=== PATIENT | male | born 1980 | race American Indian/Alaskan Native ===

== ENCOUNTER 2019-04-02 10:07 | Day surgery (SDC) | payer BC ==
--- NOTE | 2019-04-02 10:49 | Anesthesia Day of Surgery ---
Anesthesia Day of Surgery - Day of Surgery Patient Examined: Yes Patient H&P Reviewed: Yes Patient is NPO: Yes
--- NOTE | 2019-04-02 10:56 | Anesthesia Consultation ---
Anesthesia Consult and Med Hx Date of service: 04/02/19 - Airway Anesthetic Teeth Evaluation: Good (BRACES) ROM Head & Neck: Adequate Mental/Hyoid Distance: Adequate Mallampati Class: Class I Intubation Access Assessment: Good - Pre-Operative Health Status ASA Pre-Surgery Classification: ASA1 Proposed Anesthetic Plan: General - Pulmonary Hx Smoking: No (MARIJUANA QUIT 3 YRS AGO) Hx Sleep Apnea: No (SONYA PRE SCREEN LOW RISK) - Cardiovascular System Hx Hypertension: No Hx Heart Attack/AMI: No - Central Nervous System Hx Psychiatric Problems: No - Hematic Hx Anemia: No Hx Sickle Cell Disease: No (TRAIT ONLY) - Other Systems Hx Alcohol Use: No Hx Substance Use: Yes (MARIJUANA QUIT 3 YRS AGO) Hx Cancer: No
[2019-04-02] MEDS ORDERED: ONDANSETRON 4 MG/2 ML INJ IV PRN (10:57)
[2019-04-02] MEDS ORDERED: fentaNYL 100 MCG/2 ML INJ IV PRN (10:57)
[2019-04-02] MEDS ORDERED: ACETAMINOPHEN 500 MG TAB PO NR (10:58)
[2019-04-02] MEDS ORDERED: MAGNESIUM OXIDE 400 MG TAB PO NR (10:58)
[2019-04-02] MEDS ORDERED: GABAPENTIN 300 MG CAP PO NR (11:00)
[2019-04-02] MEDS ORDERED: LACTATED RINGERS 1,000 ML IV SCH (11:00)
[2019-04-02] MEDS ORDERED: CELECOXIB 200 MG CAP PO NR (11:00)
[2019-04-02] MEDS ORDERED: MIDAZOLAM 2 MG/2 ML INJ IV NR (11:00)
[2019-04-02] MEDS ORDERED: ceFAZolin/STERILE WATER 2 GM/20 ML SYRINGE IV NR (12:00)
[2019-04-02] MEDS ORDERED: BUPIVACAINE/PF (0.25%) 2.5 MG/ML 30 ML VIAL INFILTRATI ONE (12:16)
[2019-04-02] MEDS ORDERED: NEOMY 40 MG/POLYMYXIN B 200,000 UNITS/ML (GU) AMPULE IR ONE ×2 (12:16→13:42)
[2019-04-02] MEDS ORDERED: PROPOFOL 200 MG/20 ML VIAL IV ONE ×2 (12:32→12:41)
[2019-04-02] MEDS ORDERED: HYDROmorphone 1 MG/1 ML INJ ONE (12:32)
[2019-04-02] MEDS ORDERED: LIDOCAINE MPF (2%) 20 MG/1 ML VIAL 5 ML ONE (12:48)
[2019-04-02] MEDS ORDERED: dexAMETHasone 20 MG/5 ML VIAL ONE (12:49)
[2019-04-02] MEDS ORDERED: ONDANSETRON 4 MG/2 ML INJ ONE (12:49)
[2019-04-02] MEDS ORDERED: SODIUM CHLORIDE 0.9% IRR 1,500 ML BOTTLE IR ONE (13:18)
[2019-04-02] MEDS ORDERED: PHENYLEPHRINE/NS 1,000 MCG/10 ML SYRINGE (OR USE) IV ONE (13:46)
[2019-04-02] MEDS ORDERED: LACTATED RINGERS 1,000 ML ONE (14:08)
[2019-04-02] MEDS ORDERED: KETOROLAC 30 MG/1 ML INJ ONE (14:28)
--- NOTE | 2019-04-02 14:46 | Post Operative Note ---
Date of procedure: 04/02/19 Pre-op diagnosis: lih Post-op diagnosis: same Findings: large pantaloon hernia Procedure: lih repair plug and mesh Anesthesia: GETA Surgeon: FRANKLIN GAYLE Estimated blood loss: minimal Pathology: list (lipoma) Specimen disposition: to lab Condition: stable Disposition: PACU
--- NOTE | 2019-04-02 14:48 | Discharge Summary ---
Short Stay Discharge Plan Activity: other (no straining ) Weight Bearing Status: Full Weight Bearing Diet: low fat, low cholesterol, low salt Wound: open to air Special Instructions: other (ice in RR and x 24 hrs ) Follow up with: MEGAN FERNANDEZ MD [Primary Care Provider] - 7 Days FRANKLIN GAYLE MD [Staff Physician] - 10 Days
--- NOTE | 2019-04-02 15:17 | Operative Report ---
PREOPERATIVE DIAGNOSIS: Left inguinal hernia. POSTOPERATIVE DIAGNOSES: Pantaloon hernia with large defect of the floor and ring. PROCEDURE: Left inguinal exploration, insertion of a plug and mesh. SURGEON: Dr. Frias. ANESTHESIA: General. FINDINGS: This is a gentleman with a prominent hernia with intermittent pain, now presents for treatment. All risks and implications discussed. DESCRIPTION OF PROCEDURE: The patient was brought to the operating room and placed on the operating table. Following induction of anesthesia, placed over the breaking table, prepped and draped in usual sterile fashion. An oblique incision was made in transverse fashion, carried down through the skin. Superficial vessels were cauterized or tied with Vicryl. We came down to the external oblique aponeurosis. This was opened. The cord was dissected free, but there was a large defect with surrounding fatty tissue adherent to the cord with lots of scarring and fascial attachment. It was released from the cord and a large amount of tissue was anterior and medially and part of that was removed and the rest was reduced into the retroperitoneal space. Once we did that, we saw the entire floor was weak with protruding fatty tissue. Once the cord was isolated initially, it was retracted laterally and medially as needed to identify the landmarks for the sutures. Sutures were placed in the apex with stay sutures and then the plug was placed to hold the retroperitoneal fatty tissue and sac back and this was secured to the surrounding tissues, so it would not migrate. The mesh was then placed with the previously placed stay sutures at the apex and circumferential sutures of 2-0 Ethibond were placed. The patient tolerated the procedure well and there was no excess tension on the cord. Wound was copiously irrigated. The ilioinguinal nerve was initially dissected free and retracted from harm's way and cord was placed in its anatomical position with the nerve protected and the fascia was approximated with 2-0 Vicryl. The patient tolerated the procedure well. Wound was irrigated again and the superficial fascia closed with 2-0 and 3-0 Vicryl, skin with clips. ESTIMATED BLOOD LOSS: Less than 10 mL, brought to recovery room in stable condition. Family notified. JOB# [id number] JOEL/ANTOINETTE
--- NOTE | 2019-04-02 15:49 | Post Anesthesia Evaluation ---
- Post Anesthesia Evaluation Patient Participated: Yes Airway Patent: Yes Stable Respiratory Function: Yes Nausea/Vomiting: No Temp > 96.8F: Yes Pain Manageable: Yes Adequeate Hydration: Yes Anesthesia Complications: No Block Receding Appropriately: Not Applicable Patient on Ventilator: No
[2019-04-02 16:05] VITALS: BP 130/73
== END 2019-04-02 16:50 | disposition home or self-care (01) ==
LOC: OR 10:07
PROVIDERS: ATTEND Urology
DX: K40.90 Unilateral inguinal hernia, without obstruction or gangrene, not specified as recurrent (principal); E78.00 Pure hypercholesterolemia, unspecified; K21.9 Gastro-esophageal reflux disease without esophagitis; Z87.440 Personal history of urinary (tract) infections; Z98.890 Other specified postprocedural states; Z79.899 Other long term (current) drug therapy
CPT/HCPCS: 49505; 88304; C1781; J0690; J1100; J1170; J1885; J2250; J2370; J2405; J2704; J3010; J7120

== ENCOUNTER 2020-05-31 05:05 | Emergency (ER) | payer SELFPAY ==
[2020-05-31 05:26] VITALS: BP 128/78
--- NOTE | 2020-05-31 05:40 | Emergency Department Report ---
- General Chief Complaint: Headache Stated Complaint: FEVER,HEADACHE LOSS OF SMELL Time Seen by Provider: 05/31/20 05:32 Source: patient Mode of arrival: Ambulatory Limitations: No Limitations - History of Present Illness Initial Comments: This is a 39-year-old female nontoxic, well nourished in appearance, no acute signs of distress presents to the ED with c/o of frontal sinus headache, productive cough, fever, chills, body aches, rhinorrhea, loss of smell and taste, and nasal congestion x4 days. Patient describes productive cough as yellow mucus production. Patient denies any sick contacts. Patient denies any recent travels, long car, recent hospital stays. Patient denies any calf pain or calf tenderness. Patient denies any chest pain, short of breath, nausea, vomiting, hemoptysis, numbness, tingling, headache or stiff neck. Patient denies any allergies or significant PMH. MD Complaint: fever, cough, rhinorrhea, nasal congestion -: days(s) Severity: mild Severity scale (0 -10): 3 Quality: aching Consistency: constant Improves With: nothing Worsens With: nothing Associated Symptoms: fever, chills, rhinorrhea, nasal congestion, cough, other (sinus headache). denies: myalgias, diaphoresis, headache, sore throat, stiff neck, chest pain, shortness of breath, abdominal pain, nausea, vomiting, diarrhea, dysuria, rash, confusion, right sweats, weight loss, epistaxis, hoarseness, ear pain - Related Data Home Medications Medication Instructions Recorded Confirmed Last Taken Omeprazole 40 mg PO DAILY 03/11/19 04/02/19 03/31/19 09:00 Previous Rx's Medication Instructions Recorded Last Taken Type Azithromycin [Zithromax Z-MADI] 250 mg PO DAILY #6 tablet 05/31/20 Unknown Rx Benzonatate [Tessalon Perles] 100 mg PO Q12H PRN #12 capsule 05/31/20 Unknown Rx Allergies Allergy/AdvReac Type Severity Reaction Status Date / Time No Known Allergies Allergy Verified 03/25/19 16:45 ED Review of Systems ROS: Stated complaint: FEVER,HEADACHE LOSS OF SMELL Other details as noted in HPI Comment: All other systems reviewed and negative Constitutional: chills, fever Eyes: denies: eye pain, eye discharge, vision change ENT: congestion. denies: ear pain, throat pain Respiratory: cough. denies: shortness of breath, wheezing Cardiovascular: denies: chest pain, palpitations Endocrine: no symptoms reported Gastrointestinal: denies: abdominal pain, nausea, diarrhea Genitourinary: denies: urgency, dysuria Musculoskeletal: denies: back pain, joint swelling, arthralgia Skin: denies: rash, lesions Neurological: denies: headache, weakness, paresthesias Psychiatric: denies: anxiety, depression Hematological/Lymphatic: denies: easy bleeding, easy bruising ED Past Medical Hx - Past Medical History Previous Medical History?: Yes Hx Hypertension: No Hx Heart Attack/AMI: No Hx Congestive Heart Failure: No Hx GERD: Yes Hx Sickle Cell Disease: Yes (TRAIT) Hx Tuberculosis: No Hx HIV: No - Surgical History Past Surgical History?: Yes Additional Surgical History: hernia. right wrist - Social History Smoking Status: Never Smoker Substance Use Type: None - Medications Home Medications: Home Medications Medication Instructions Recorded Confirmed Last Taken Type Omeprazole 40 mg PO DAILY 03/11/19 04/02/19 03/31/19 09:00 History Azithromycin [Zithromax Z-MADI] 250 mg PO DAILY #6 tablet 05/31/20 Unknown Rx Benzonatate [Tessalon Perles] 100 mg PO Q12H PRN #12 capsule 05/31/20 Unknown Rx ED Physical Exam - General Limitations: No Limitations General appearance: alert, in no apparent distress - Head Head exam: Present: atraumatic, normocephalic - Eye Eye exam: Present: normal appearance, PERRL, EOMI - ENT ENT exam: Present: normal exam, normal orophraynx - Neck Neck exam: Present: normal inspection, full ROM. Absent: tenderness, meningismus, lymphadenopathy - Respiratory Respiratory exam: Present: normal lung sounds bilaterally. Absent: respiratory distress, wheezes, rales, rhonchi, stridor, chest wall tenderness, accessory muscle use, decreased breath sounds, prolonged expiratory - Cardiovascular Cardiovascular Exam: Present: regular rate, normal rhythm, normal heart sounds. Absent: bradycardia, tachycardia, irregular rhythm, systolic murmur, diastolic murmur, rubs, gallop - Extremities Exam Extremities exam: Present: full ROM - Back Exam Back exam: Present: normal inspection, full ROM - Neurological Exam Neurological exam: Present: alert, oriented X3, normal gait - Psychiatric Psychiatric exam: Present: normal affect, normal mood - Skin Skin exam: Present: warm, dry, intact, normal color. Absent: rash - Other Other exam information: Tenderness to frontal sinus area. ED Course Vital Signs 05/31/20 05:09 Temperature 99.1 F Pulse Rate 76 Respiratory 18 Rate Blood Pressure 128/78 O2 Sat by Pulse 98 Oximetry - Reevaluation(s) Reevaluation #1: 05/31/20 05:39 Patient is speaking in full sentences with no signs of distress noted. ED Medical Decision Making - Medical Decision Making This is a 39-year-old male that presents with sinusitis with suspected Covid. Patient is stable and was examined by me. Chest x-ray has been obtained and dictated by radiologist with normal exam. Patient is notified of x-ray results with no questions noted. Patient does meet clinical concerns of COVID-19 and patient was instructed and educated on signs and symptoms and to self quarantine and seek medical attention as soon as possible if symptoms worsen. I will treat patient empirically with zpak. Patient was instructed to increase hydration, rest and take Tylenol for fever episodes. Patient was given referrals for Covid testing. Vitals stable. Patient is nonfebrile and normal heart rate. Patient was instructed Follow-up with a primary care doctor in 3-5 days or if symptoms worsen and continue return to emergency room as soon as possible. At time time of discharge, the patient does not seem toxic or ill in appearance. No acute signs of distress noted. Patient agrees to discharge treatment plan of care. No further questions noted by the patient.nt. Critical care attestation.: If time is entered above; I have spent that time in minutes in the direct care of this critically ill patient, excluding procedure time. ED Disposition Clinical Impression: Suspected COVID-19 virus infection Sinusitis Qualifiers: Sinusitis location: frontal Chronicity: acute Recurrence: non-recurrent Qualified Code(s): J01.10 - Acute frontal sinusitis, unspecified Disposition: - TO HOME OR SELFCARE Is pt being admited?: No Does the pt Need Aspirin: No Condition: Stable Instructions: COVID-19 Frequently Asked Questions, COVID-19, Sinusitis, Adult, [id number] Additional Instructions: Follow-up with a primary care doctor in 3-5 days or if symptoms worsen and continue return to emergency room as soon as possible. As educated and instructed to you must self quarantine yourself and people that you have been in close contact with similar symptoms for the next 14 days. Please see your nearest health department or primary care doctor that you are referred to for COVID testing. Increased rest, hydration, and take Tylenol as prescribed for fever episode. Prescriptions: Benzonatate [Tessalon Perles] 100 mg PO Q12H PRN #12 capsule PRN Reason: Cough Azithromycin [Zithromax Z-MADI] 250 mg PO DAILY #6 tablet Referrals: PRIMARY CAREMD [Primary Care Provider] - 3-5 Days MALISSA NEGRO MD [Staff Physician] - 3-5 Days Forms: Work/School Release Form(ED) Time of Disposition: 06:15
--- NOTE | 2020-05-31 06:13 | XRay Report ---
CHEST 2 VIEWS [id number] INDICATION / CLINICAL INFORMATION: cough COMPARISON: None available. FINDINGS: SUPPORT DEVICES: None. HEART / MEDIASTINUM: No significant abnormality. LUNGS / PLEURA: No significant pulmonary or pleural abnormality. No pneumothorax. ADDITIONAL FINDINGS: No significant additional findings. IMPRESSION: No significant acute abnormality Signer Name: Wolfgang Herrera MD Signed: 05/31/2020 6:08 AM Workstation Name: [id number]
== END 2020-05-31 06:30 | disposition home or self-care (01) ==
LOC: ED 05:05
DX: J32.9 Chronic sinusitis, unspecified (principal); Z20.828 Contact with and (suspected) exposure to other viral communicable diseases; K21.9 Gastro-esophageal reflux disease without esophagitis; Z79.899 Other long term (current) drug therapy
CPT/HCPCS: 71046; 99283

== ENCOUNTER 2020-07-30 07:58 | Emergency (ER) | payer SELFPAY ==
[2020-07-30 08:04] VITALS: BP 128/81
--- NOTE | 2020-07-30 08:29 | Emergency Department Report ---
Minor Respiratory - HPI Chief Complaint: Upper Respiratory Infection Stated Complaint: BRONCHITIS Time Seen by Provider: 07/30/20 08:17 Duration: 2 Days Minor Respiratory: Yes Sore Throat, Yes Able to Tolerate Fluids, Yes Ear Pain, Yes Cough, No Rhinorrhea (Postnasal drip), No Sick Contacts, No Hemoptysis, No Chest Pain, No Shortness of Breath, No Fever Other History: 39-year-old -[place] male presents to the emergency room complaining of scratchy throat and cough. Patient admits to postnasal drip sneezing. Patient reports that he had Covid last month. He has tested -3 weeks ago. Patient states that he had 1 Tessalon Perles left and he took it and reports that it helped with his cough. Patient denies any fever chills no nausea no vomiting no chest pain or shortness of breath. ED Review of Systems ROS: Stated complaint: BRONCHITIS Other details as noted in HPI Comment: All other systems reviewed and negative ED Past Medical Hx - Past Medical History Previous Medical History?: Yes Hx Hypertension: No Hx Heart Attack/AMI: No Hx Congestive Heart Failure: No Hx GERD: Yes Hx Sickle Cell Disease: Yes (TRAIT) Hx Tuberculosis: No Hx HIV: No - Surgical History Past Surgical History?: Yes Additional Surgical History: Hernia. Right wrist - Social History Smoking Status: Never Smoker Substance Use Type: None - Medications Home Medications: Home Medications Medication Instructions Recorded Confirmed Last Taken Type Omeprazole 40 mg PO DAILY 03/11/19 04/02/19 03/31/19 09:00 History Azithromycin [Zithromax Z-MADI] 250 mg PO DAILY #6 tablet 05/31/20 Unknown Rx Benzonatate [Tessalon Perles] 100 mg PO Q12H PRN #12 capsule 07/30/20 Unknown Rx Minor Respiratory Exam - Exam General: Vital signs noted. No distress. Alert and acting appropriately. HEENT: Yes Pharyngeal Erythema, Yes Moist Mucous Membranes, No Pharyngeal Exudates, No Rhinorrhea, No Conjuctival Injection, No Frontal Tenderness, No Maxillary Tenderness Neck: No Adenopathy, No Supple Lungs: Yes Good Air Exchange, No Wheezes, No Ronchi, No Stridor, No Cough, No Labored Respirations, No Retractions, No Use of Accessory Muscles, No Other Abnormal Lung Sounds Heart: Yes Regular, No Murmur Abdomen: Yes Normal Bowel Sounds, No Tenderness, No Peritoneal Signs Skin: No Rash, No Edema Neurologic: Alert and oriented, no deficits. Musculoskeletal: Unremarkable. ED Course Vital Signs 07/30/20 08:02 Temperature 97.9 F Pulse Rate 75 Respiratory 20 Rate Blood Pressure 128/81 O2 Sat by Pulse 100 Oximetry ED Medical Decision Making - Medical Decision Making 39-year-old -[place] male presents to the emergency room complaining of scratchy throat and cough. Patient admits to postnasal drip sneezing. Patient reports that he had Covid last month. He has tested -3 weeks ago. Patient states that he had 1 Tessalon Perles left and he took it and reports that it helped with his cough. Patient denies any fever chills no nausea no vomiting no chest pain or shortness of breath. Patient appears to have allergic rhinitis. Encourage patient to take Zyrtec's or Claritin use Flonase and will give a prescription for benzonatate/Tessalon Perles. Patient is encouraged to increase his water intake. Follow-up with his primary care provider. Critical care attestation.: If time is entered above; I have spent that time in minutes in the direct care of this critically ill patient, excluding procedure time. ED Disposition Clinical Impression: Allergic rhinitis due to allergen Qualifiers: Allergic rhinitis trigger: pollen Allergic rhinitis seasonality: seasonal Qualified Code(s): J30.1 - Allergic rhinitis due to pollen Disposition: DC-01 TO HOME OR SELFCARE Is pt being admited?: No Does the pt Need Aspirin: No Condition: Stable Instructions: Allergic Rhinitis, Adult, [id number] Additional Instructions: Recommend Zyrtec's or Claritin, Flonase or Nasacort which are all [id number]. Take benzonatate for the cough. Follow-up with your primary care provider. Prescriptions: Benzonatate [Tessalon Perles] 100 mg PO Q12H PRN #12 capsule PRN Reason: Cough Referrals: GRAHAM GARCIA MD [Staff Physician] - 3-5 Days
== END 2020-07-30 08:42 | disposition home or self-care (01) ==
LOC: ED 07:58
DX: J30.1 Allergic rhinitis due to pollen (principal); K21.9 Gastro-esophageal reflux disease without esophagitis; Z79.899 Other long term (current) drug therapy
CPT/HCPCS: 99282